=== PATIENT | male | born 1965 | race Caucasian/White ===

== ENCOUNTER 2016-03-10 20:53 | Emergency (ER) | payer OTHER ==
[~2016-03-10] VITALS: Ht 180.3 cm; Wt 90.7 kg
[~2016-03-10 20:53] MED LIST: ATIVAN1 M1 PO; ATIVAN1 MG PO; CATAPRES0.1 M1 PO; FOLATE1 MG PO; LISINOPRIL20 M1 PO; LOPRESSOR25 MG PO; NEURONTIN100 MG PO; PHENERGAN25 M3 PO; RISPERDAL0.25 MG PO; TAB-A-VITE1 TA3 PO; VITAMIN B1100 M3 PO; ZESTRIL20 MG PO; ZOLOFT25 MG PO
[2016-03-10 21:39] VITALS: BP 164/118
--- NOTE | 2016-03-10 23:55 | NUR ---
PT TAKEN TO BED 2
[2016-03-11] MEDS ORDERED: MORPHINE SULFATE 4 MG/ML SYR IVP ONE ×2 (00:55→02:25)
[2016-03-11] MEDS ORDERED: ONDANSETRON 4 MG/2 ML VIAL IVP ONE (00:55)
[2016-03-11] MEDS ORDERED: NACL 0.9% 1,000 ML IV ONE (00:55)
--- NOTE | 2016-03-11 02:45 | NUR ---
GASTRIC LAVAGE DONE. DR IRAHETA SAW THE ASPIRATED GASTRIC CONTENTS AND THEN TALKED TO PT AND PT'S MOM. PT AND MOM VERBALIZED UNDERSTANDING.
--- NOTE | 2016-03-11 02:45 | NUR ---
50Y M BIB [facility] C/O OF ABD PAIN W/ VOMITTING. PAIN 10/10 IN SCALE. AAOX3, NO DISTRESS NOTED, NO N/V AT THIS POINT.
[2016-03-11] MEDS ORDERED: LORazepam 2 MG/ML VIAL IVP ONE (03:10)
[2016-03-11 06:44] VITALS: BP 142/81
--- NOTE | 2016-03-11 06:45 | NUR ---
Patient discharged with v/s stable. Written and verbal after care instructions given and explained. Patient alert, oriented and verbalized understanding of instructions. Ambulatory with steady gait. All questions addressed prior to discharge. ID band removed. Patient advised to follow up with PMD. Rx of PEPCID 20MG PO, ZOFRAN 4MG ODT PO, LIBRIUM 10MG CAPSULE PO given. Patient educated on indication of medication including possible reaction and side effects. Opportunity to ask questions provided and answered.
== END 2016-03-11 06:45 | disposition home or self-care (01) ==
LOC: MED 20:53
DX: K29.70 Gastritis, unspecified, without bleeding (principal); F10.239 Alcohol dependence with withdrawal, unspecified; I10 Essential (primary) hypertension; Z86.73 Personal history of transient ischemic attack (TIA), and cerebral infarction without residual deficits; Y90.9 Presence of alcohol in blood, level not specified
CPT/HCPCS: 36415; 43753; 80053; 81001; 82150; 83690; 85025; 96361; 96374; 96375; 96376; 99291; J2060; J2270; J2405; J7030

== ENCOUNTER 2019-01-01 20:02 | Emergency (ER) | payer MEDICAID, OTHER ==
[~2019-01-01] VITALS: Ht 180.3 cm; Wt 95.3 kg
[~2019-01-01 20:02] MED LIST changes: -ATIVAN1 M1 PO; -ATIVAN1 MG PO; -CATAPRES0.1 M1 PO; +CLON0.1T42 PO; -FOLATE1 MG PO; +FOLI1TAB19 PO; +GABA100C PO; +LISI-420 PO; -LISINOPRIL20 M1 PO; -LOPRESSOR25 MG PO; +LORA-476 PO; +METO25TA PO; +MULT-405 PO; -NEURONTIN100 MG PO; -PHENERGAN25 M3 PO; +PROM25TA85 PO; -RISPERDAL0.25 MG PO; +SERT25TA PO; -TAB-A-VITE1 TA3 PO; +THIA100T25 PO; -VITAMIN B1100 M3 PO; -ZESTRIL20 MG PO; -ZOLOFT25 MG PO
--- NOTE | 2019-01-01 20:02 | NUR ---
PT PRAVEEN BLS. TAKEN TO BED 7
[2019-01-01 20:05] VITALS: BP_SYST 153; BP_SYST 165; BP_DIAS 107; BP_DIAS 98
--- NOTE | 2019-01-01 20:13 | NUR ---
Dr. Serna examining patient.
[2019-01-01] MEDS ORDERED: NACL 0.9% 1,000 ML IV ONE (20:15)
[2019-01-01] MEDS ORDERED: MORPHINE SULFATE 4 MG/ML SYR IVP ONE (20:15)
[2019-01-01] MEDS ORDERED: ONDANSETRON 4 MG/2 ML VIAL IVP ONE (20:15)
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
[2019-01-01 20:39] LABS: BASOPHILS # (AUTO) 0.1 K/uL (0.00-0.22); BASOPHILS % (AUTO) 1.4 % (0.0-2.0); EOSINOPHILS # (AUTO) 0.1 K/uL (0-0.4); EOSINOPHILS % (AUTO) 2.5 % (0.0-4.0); HEMATOCRIT 44.2 % (36-52); HEMOGLOBIN 14.8 g/dL (12.0-18.0); LYMPHOCYTES # (AUTO) 1.4 K/uL (2.0-11.5); LYMPHOCYTES % (AUTO) 34.6 % (20.5-51.1); MEAN CORPUSCULAR HEMOGLOBIN 28 pg (27-31); MEAN CORPUSCULAR HGB CONC 33 g/dL (33-37); MEAN CORPUSCULAR VOLUME 82.8 fL (80-94); MONOCYTES # (AUTO) 0.5 K/uL (0.8-1.0); MONOCYTES % (AUTO) 11.9 % (1.7-9.3); NEUTROPHILS % (AUTO) 49.6 % (42.2-75.2); PLATELET COUNT (AUTO) 201 K/uL (140-450); RED BLOOD CELL COUNT(AUTO) 5.33 MIL/uL (4.20-6.10); WHITE BLOOD COUNT (AUTO) 4.1 K/uL (4.8-10.8)
[2019-01-01 20:56] LABS: POTASSIUM 3.6 mmol/L (3.5-5.1)
[2019-01-01 20:57] LABS: ANION GAP 15.1 (8-16); CARBON DIOXIDE 25.5 mmol/L (21-32); CREATININE 0.8 mg/dL (0.7-1.3)
[2019-01-01 20:58] LABS: TOTAL BILIRUBIN 0.3 mg/dL (0.0-1.0)
[2019-01-01 21:10] LABS: BARBITURATE, URINE NEGATIVE ng/ml (NEG <=200); BENZODIAZEPINE, URINE NEGATIVE ng/mL (NEG <=200); CANNABINOID, URINE NEGATIVE ng/mL (NEG <=50); COCAINE, URINE NEGATIVE ng/mL (NEG <=300); OPIATE, URINE NEGATIVE ng/mL (NEG <=2000); PHENCYCLIDINE SCREEN,URINE NEGATIVE ng/mL (NEG <=25)
[2019-01-01 21:46] VITALS: BP 128/90
--- NOTE | 2019-01-01 21:46 | NUR ---
Patient discharged with v/s stable. Written and verbal after care instructions given and explained. Patient verbalized understanding. Ambulatory with steady gait. All questions addressed prior to discharge. Advised to follow up with PMD.
--- NOTE | 2019-01-01 22:05 | NUR ---
PT AOX4, AMBULATORY WITH STEADY GAIT. PT STATED THAT HE IS NOT ABLE TO HAVE ANY FAMILY/FRIENDS PICK HIM UP AT THIS TIME. PT REQUESTING FOR RIDE BACK TO PT'S FRIEND'S RESIDENCE WHERE PT WAS PICKED UP FROM WHEN HE CALLED [phone], [facility]. EXPLAINED TO PT THAT WE OFFER TO CALL [facility] FOR PT BUT HE HAS TO PAY AT HOME, PT REFUSED AND STATED THAT HE DOES NOT HAVE MONEY. CALLED [facility], RECEIVED [facility]OUCHER FOR PT, HANDED TO ER ADMITTING STAFF TO CALL FOR PT.
== END 2019-01-01 21:46 | disposition home or self-care (01) ==
LOC: MED 20:02
DX: R10.9 Unspecified abdominal pain (principal); F10.129 Alcohol abuse with intoxication, unspecified; R11.10 Vomiting, unspecified; I10 Essential (primary) hypertension; Z98.890 Other specified postprocedural states; Z79.899 Other long term (current) drug therapy
CPT/HCPCS: 36415; 80053; 80305; 83690; 85025; 96361; 96374; 96375; 99283; G0482; J2270; J2405